=== PATIENT | female | born 1940 | race Caucasian/White ===

== ENCOUNTER 2017-01-06 12:27 | Inpatient (IN) | payer MEDICARE, BC ==
--- NOTE | ~2017-01-06 | CR72 ---
[facility] A Service of [facility] RADIOLOGY TEXT RESULTS PATIENT: BRIDGET COFFEY LOCATION: [facility] 562- : 41 UNIT #: [id number] AGE: [address]: Mirna Patel MD SEX: F ORDER DR: [id number] [facility] [address] [place], [place] [address] [id number] E MR#: [id number] Acc #: [id number] NAME: BRIDGET COFFEY : 1940 SEX: F STUDY DATE/TIME: 01/06/2017 14:24 UNIT: [facility] ROOM: STUDY DESCRIPTION: CR Chest Single View Portable Attending Physician: Dwayne Mike D.O. Ordering Physician: Dwayne Mike D.O. Primary Care Physician: Elias Beasley M.D. MEDICAL IMAGING REPORT This report is preliminary unless electronic signature is present EXAM Portable chest INDICATIONS Shortness of breath, cough and history for 10 days. COMPARISON STUDIES Compared with 03/14/2015 FINDINGS Calcified granuloma in the left lung. No acute infiltrate. Heart size stable. Tortuous aorta. IMPRESSION No active disease. Dictated by... Jose Hall M.D. THIS IS AN ELECTRONICALLY VERIFIED REPORT Jose Hall M.D. at 01/07/2017 10:06 AM ADALBERTO/fabienne TD: 01/06/2017 18:35 JOB #: [id number] MEDICAL IMAGING REPORT Page 1 of 1 COPY
--- NOTE | ~2017-01-06 | US77 ---
[facility] of [facility] RADIOLOGY TEXT RESULTS PATIENT: BRIDGET COFFEY LOCATION: [facility] 56- : 41 UNIT #: [id number] AGE: [address]: Mirna Patel MD SEX: F ORDER DR: [id number] [facility] [address] [place], [place] [address] [id number] I MR#: [id number] Acc #: [id number] NAME: BRIDGET COFFEY : 1940 SEX: F STUDY DATE/TIME: 01/06/2017 19:53 UNIT: [facility] ROOM: [facility] STUDY DESCRIPTION: US Kidney Bilateral Complete Attending Physician: Mirna Patel M.D. Ordering Physician: Eduardo Curran M.D. Primary Care Physician: Elias Beasley M.D. MEDICAL IMAGING REPORT This report is preliminary unless electronic signature is present EXAM Renal sonogram HISTORY Acute kidney injury, onset today. Creatinine 1.9. FINDINGS Real-time examination demonstrates the kidneys to be of normal size, shape and echogenicity. The right kidney measures 9.2 cm in length and the left kidney measures 8.6 cm in length. No hydronephrosis. No mass lesions. No perinephric fluid collections. Bladder not visualized. IMPRESSION Normal bilateral renal sonogram. Dictated by... Pamela Hall M.D. THIS IS AN ELECTRONICALLY VERIFIED REPORT Pamela Hall M.D. at 01/07/2017 3:10 PM Aldo TD: 01/07/2017 10:20 JOB #: [id number] MEDICAL IMAGING REPORT Page 1 of 1 COPY
--- NOTE | ~2017-01-06 | HP ---
Unit #: [id number] #: [id number] Patient: BRIDGET COFFEY [id number] [address] [place], [place] [address] [id number] E MR#: [id number] NAME: BRIDGET COFFEY ROOM: Age: 76 Sex: F Admission Date: 01/06/2017 : 1940 Attending Physician: Dwayne Mike D.O. Primary Care Physician: Elias Beasley M.D. HISTORY AND PHYSICAL CHIEF COMPLAINT Shortness of breath. HISTORY OF PRESENT ILLNESS The patient is a 76-year-old female with a history of bronchial asthma brought to the emergency room with worsening shortness of breath. The patient has been seeing the primary care physician for the last 10 days. The patient was on two rounds of IV and oral antibiotics and steroids. The patient finished the steroids two days ago. The patient complains of generalized weakness. The patient was found to have a lactic acid of 4.8 and potassium of 2.4. The chest x-ray is negative, and the urinalysis is not significant. The patient is being admitted for the above reasons. The patient is on multiple medications for diabetes including metformin. She denies any fever, chills, or nausea. The patient complains of a greenish productive cough for the last few days, and it is subsiding with the antibiotics and steroid prednisone. PAST MEDICAL HISTORY 1. Hypertension. 2. Seasonal allergies. 3. Bronchial asthma. 4. Type 2 diabetes. 5. Hypothyroidism. 6. Chronic back pain. 7. Chronic anxiety. 8. Gastroesophageal reflux disease. 9. Spastic bladder. PAST SURGICAL HISTORY 1. Bladder tie-up surgery. 2. Repair of rectocele. 3. Cataract surgery. 4. Cholecystectomy. 5. Hysterectomy. 6. Right knee replacement. 7. Lumbar spine surgery. HOME MEDICATIONS 1. Zanaflex. 2. Triamcinolone. 3. Maxzide. 4. Iron. 5. Promethazine. 6. Singulair. Unit #: [id number] #: [id number] Patient: BRIDGET COFFEY 7. Prilosec. 8. Ditropan. 9. K-Dur. 10. Saxagliptin/metformin. 11. Hydrocortisone. 12. Klor-Con. 13. Xyzal. 14. Synthroid. 15. Toprol-XL. 16. Advair. 17. Lasix. 18. Gabapentin. 19. Amaryl. 20. Hydrocodone and acetaminophen. 21. Diphenhydramine. 22. Colace. 23. Emollient. 24. Ferrous sulfate. 25. Flovent. 26. Norvasc. 27. Ammonium lactate. 28. Lipitor. 29. Clobetasol. 30. Farxiga. ALLERGIES Terramycin and penicillins. SOCIAL HISTORY No history of tobacco, alcohol, or any illicit drug abuse. FAMILY HISTORY Reviewed and none. REVIEW OF SYSTEMS A 14-point review of systems was performed and only pertinent positive findings are described above. The remaining are negative. PHYSICAL EXAMINATION GENERAL: Patient is lying in bed not in acute distress. VITAL SIGNS: Temperature 97.7, pulse 81, respiratory rate 16, blood pressure 96/61, and saturating 99% on room air. HEENT: Head atraumatic, normocephalic. Pupils equal, round, and reactive to light and accommodation. Extraocular movements are intact. NECK: Supple. LUNGS: Decreased air entry at the bases. No rhonchi, no wheezing. HEART: Regular rate and rhythm. ABDOMEN: Soft. Positive bowel sounds. EXTREMITIES: No cyanosis, no clubbing. Trace pedal edema. NEUROLOGIC: Alert, awake, and oriented. No gross focal motor deficit. DIAGNOSTIC STUDIES LABORATORY: Magnesium is 2.4. Troponin less than 0.05. WBC 26.7, hemoglobin 15.3, hematocrit 46.2, and platelets 212,000. Urinalysis shows trace leukocyte esterase and glucose 500. BNP 60. Sodium 132, potassium 2.4, chloride 89, bicarb 26, glucose 188, BUN 85, creatinine 1.9, AST 38, ALT 33, and albumin 4.3. Lactic acid 4.8. INR is 1. Troponin less than 0.05. Unit #: [id number] #: [id number] Patient: BRIDGET COFFEY ASSESSMENT 1. Lactic acidosis. 2. Probable sepsis. 3. Hypokalemia. 4. Acute kidney injury. 5. Weakness. PLAN Admit the patient to inpatient. Patient's lactic acidosis is probably due to metformin. Rule out infectious etiology. Patient will have a CT chest without contrast to rule out pneumonia. Patient will be on empiric IV antibiotics with Zithromax with history of penicillin allergy. Will have a Renal consult for the acute kidney injury and hypokalemia. Replace the potassium per protocol and hold metformin and Lasix. Patient will be on low-dose sliding scale and Accu-Cheks a.c. and at bedtime. Further recommendations will follow. Dictated by Oksana Molina TD: 01/06/2017 17:17 JOB #: [id number] HISTORY AND PHYSICAL Page 1 of 1 X PRASAD LUCIA MD X HISTORY AND PHYSICAL
--- NOTE | ~2017-01-06 | CO ---
Unit #: [id number] #: [id number] Patient: ALLISON CUMMINS [id number] [address] [place], [place] [address] [id number] I MR#: [id number] NAME: ALLISON CUMMINS ROOM: 562 Age: 76 Sex: F Admission Date: 01/06/2017 : 1940 Attending Physician: Mirna Patel M.D. Primary Care Physician: Elias Beasley M.D. Consultation Date: 01/07/2017 CONSULTATION REPORT REASON FOR CONSULTATION Renal insufficiency and hypokalemia. Thank you very much for asking me to see this patient in consultation. HISTORY OF PRESENT ILLNESS Ms. Allison Cummins is a 76-year-old female, who presented to the hospital here yesterday with severe weakness, who noted upon presentation to have an increased BUN and creatinine recorded at 85 and 1.9 last night. Because of this, I was asked to see the patient. She also had a potassium of 2.4. In reviewing her records in 2012, she had a creatinine in the 1 range, 04/04, it was 1.5, 06/04, it was 1.7, and it again noted upon presentation here, the patient states she has been feeling really sick and tired lately. She has had increased weakness. She has been to her primary doctor several times and was given two new medicines, but she could not tell me what they were, she thought one was diuretic added and may be an antibiotic, but again she was unable to tell me at this time and from looking in her list, it is unclear. She states she has had some intermittent shortness of breath, although she has that chronically with some asthma. She has been very tired, weak, just very difficult ambulating. She has not fallen recently, she has not had any swelling or any skin rashes. She used to be on Celebrex a few years ago, but she states she is not on Celebrex, Mobic, or any nonsteroidals now for her chronic pain. She says she has had bladder issues, but no burning when she urinates. Upon presentation, she also noted to have a lactic acid level of 4.8 with an increased white count of 26,700. She did receive one dose of Rocephin and azithromycin in the emergency room. I do not see any other antibiotics ordered at this point in time. She has blood cultures that were ordered as well. She is still just very tired and weak. Her potassium is being replaced and she was placed on IV fluids. This morning, she was noted to have a BUN and creatinine improved down to 70 and 1.3. PAST MEDICAL HISTORY History of bronchitis and asthma, history of hypertension, history of diabetes mellitus, history of hypothyroidism, history of chronic back pain, previous Celebrex use but none recently, history of anxiety, history of gastroesophageal reflux disease, history of spasmodic bladder, status post surgery in the past. She is status post cholecystectomy, status post hysterectomy, status post spine surgery, and status post knee surgery. ALLERGIES Include tetracycline and penicillin. Unit #: [id number] #: [id number] Patient: ALLISON CUMMINS SOCIAL HISTORY She does not smoke or drink. MEDICATIONS At home, include; Norvasc 5 mg a day. She is on Lipitor 10 mg a day and clobetasol cream. She is on Farxiga 5 mg a day. She is on Colace. She is on iron pill, several inhalers, Lasix 40 mg a day, gabapentin 400 mg four times a day, Amaryl 4 mg a day, hydrocodone, Tylenol p.r.n., hydrocortisone cream, and KCl 10 mEq four times a day. She is on Xyzal at bedtime, Synthroid 100 mcg a day, Toprol-XL 100 mg a day, Singulair 10 mg at night, Prilosec 20 mg a day, Ditropan XL 10 mg a day. She is on a combination of saxagliptin and metformin 11/999 tablet daily, Zanaflex 4 mg p.r.n., and Maxzide 75/50 daily. She is on Phenergan with codeine. REVIEW OF SYSTEMS As mentioned in the HPI. She denies any visual problems. No active sinus problems. No cough or hemoptysis. No neck pain or neck stiffness. No chest pain, chest heaviness, or palpitations. She has some chronic shortness of breath. No severe abdominal pain. No nausea, vomiting, or diarrhea. Currently, she denies any burning when she urinates. No swelling. No recent seizures or strokes. FAMILY HISTORY Negative for any kidney disease. PHYSICAL EXAMINATION GENERAL: She is alert and oriented, seems very tired. VITAL SIGNS: Temperature 98.0, pulse 79, and blood pressure 91 to 119 over 54 to 95. HEENT: She is normocephalic and atraumatic. Pupils are equal, round, and reactive to light. Her extraocular muscles are intact. Her mouth is clear and dry. No erythema or exudates. NECK: Supple. No JVD. CARDIAC: She appears to have a regular rate and rhythm without a rub. No S3 or S4. LUNGS: Clear bilaterally. No wheezes, rhonchi, or rales. ABDOMEN: Bowel sounds are positive. Nontender. Soft. No masses felt. No hepato-organomegaly noted. EXTREMITIES: She has no edema, clubbing, or cyanosis. NEUROLOGIC: Appears to be intact motor and sensory grossly. : Tripp catheter is in place. DIAGNOSTIC STUDIES LABORATORY RESULTS: Again upon admission, she had a BUN and creatinine of 85 and 1.9, lactic acid 4.8, potassium of 2.4, and sodium of 132. Today, she has a sodium of 136, potassium 2.5, but had actively been replaced, chloride is 90, bicarb is 27, BUN and creatinine of 70 and 1.3 respectively, glucose 69, and calcium 8.6. She had normal liver function tests. Albumin 4.3. Hemoglobin upon admission was 15.3, white count 26,700, and platelets 214,000. Her UA showed specific gravity of 1.013, no protein, 500 of glucose, 0 to 2 rbc's, although positive blood on dipstick, and 2 to 5 wbc's. Her urine sodium 65. Urine eosinophils pending. IMAGING STUDIES: Chest x-ray was negative. ASSESSMENT AND PLAN 1. Acute on possible chronic kidney disease, certainly creatinine over Unit #: [id number] #: [id number] Patient: ALLISON CUMMINS the last several years, it has been elevated to 1.5 to 1.7 range. She states she has never seen a kidney doctor that she knows of. Certainly, she does appear to have a component of volume depletion from multiple diuretics of Maxzide and Lasix. Her urine is fairly benign. In fact, she has no hematuria or proteinuria. She has a renal ultrasound that is pending. I do not know what her postvoid residual was when they put a Tripp catheter in, but she is making urine now and she has a history of some bladder issues. Also, because she had positive rbc's, but no blood and she is on Lipitor, I am going to go ahead and check CPK to rule out rhabdomyolysis. Also, I am going to check SPEP to rule out multiple myeloma. Continue IV fluids and hold her diuretics depending on how she does, depending on what further workup and treatment. 2. Lactic acidosis. I wonder if she has metformin-induced metabolic lactic acidosis secondary to her renal function, I am not sure over the last year, it could be less than 30 mL/minute and probably could have lactic acidosis from this. Certainly, metformin has been discontinued unless her renal function gets significantly better. I am not sure I would use this particular agent in the future. 3. Hypokalemia. The patient with severe decreased potassium and is probably drug induced from multiple diuretics, although she does have history of low potassium over the last few years in the chart. 4. History of hypertension. I am going to go ahead and do an aldosterone renin level to rule out hyperaldosteronism. I agree with aggressive potassium replacement and holding diuretics. 5. Diabetes mellitus. Again, hold metformin. 6. Hypertension. Again, agree with holding diuretics including Lasix and Maxzide for now. 7. Hyponatremia. Sodium of 132 upon admission. It is probably hypovolemic hyponatremia. Again, we will go ahead and check a cortisol level in a.m., check a TSH, hold her diuretics for now and we will follow. Dictated by.Laura Curran M.D. JOHAN/dom TD: 01/08/2017 03:33 JOB #: [id number] CONSULTATION REPORT Page 1 of 1 X Andrea Curran MD X CONSULTATION REPORT
--- NOTE | ~2017-01-06 | EKG ---
PATIENT: BRIDGET COFFEY UNIT #: [id number] Ventricular Rate: 76 BPM Atrial Rate: 76 BPM P-R Interval: 182 ms QRS Duration: 86 ms Q-T Interval: 432 ms QTC Calculation(Bezet): 486 ms P [place]: 37 degrees Calculated R [place]: -12 degrees Calculated T [place]: 57 degrees Diagnosis Line: Normal sinus rhythm Diagnosis Line: Left ventricular hypertrophy with repolarization Diagnosis Line: abnormality Diagnosis Line: Abnormal ECG Diagnosis Line: No previous ECGs available Diagnosis Line: Confirmed by AGUSTÍN ACE MD ([id number]) on Diagnosis Line: 01/06/2017 10:20:06 PM INTERPRETING MD: JOLENE
--- NOTE | ~2017-01-06 | CT57 ---
[facility] A Service of [facility] RADIOLOGY TEXT RESULTS PATIENT: BRIDGET COFFEY LOCATION: [facility] 562-01 : 41 UNIT #: [id number] AGE: [address]: Mirna Patel MD SEX: F ORDER DR: [id number] [facility] [address] [place], [place] [address] [id number] I MR#: [id number] #: [id number] NAME: BRIDGET COFFEY : 1940 SEX: F STUDY DATE/TIME: 01/06/2017 19:33 UNIT: [facility] ROOM: [facility] STUDY DESCRIPTION: CT Chest Wo Cont Attending Physician: Mirna Patel M.D. Ordering Physician: lAex Vazqeuz M.D. Primary Care Physician: Elias Beasley M.D. MEDICAL IMAGING REPORT This report is preliminary unless electronic signature is present EXAM CT chest without contrast. HISTORY 76-year-old female, shortness of air, productive cough x10 days, history of asthma, chronic bronchitis. COMPARISON CT chest 02/01/13. FINDINGS Axial images performed through the chest without contrast. This CT exam was performed with one or more of the following radiation dose reduction techniques: automatic exposure control, adjustment of mA and/or kV according to patient size, and iterative reconstruction. Multiplanar reconstructed images reviewed at a workstation. Examination demonstrates deformity of the thorax secondary to mild scoliosis. Pulmonary hyperinflation hyperlucency suggests mild emphysema. There is a densely calcified left upper lobe granuloma. No acute airspace disease. No effusions. Mild tracheobronchomegaly. Heart, aorta and pulmonary vessels unremarkable on this unenhanced study. No adenopathy. The upper abdomen unremarkable. Osseous structures and thoracic inlet unremarkable. IMPRESSION 1. Mild pulmonary hyperinflation could reflect underlying emphysema or related to reactive airway disease and emphysema. No acute airspace disease or consolidation. 2. Mild thoracolumbar scoliosis. Dictated by.Laura Hall M.D. [facility] A Service of [facility] RADIOLOGY TEXT RESULTS PATIENT: BRIDGET COFFEY LOCATION: [facility] 562-01 : [birth year] UNIT #: [id number] AGE: [address]: Mirna Patel MD SEX: F ORDER DR: THIS IS AN ELECTRONICALLY VERIFIED REPORT Pamela Hall M.D. at 01/07/2017 3:09 PM Nikia TD: 01/07/2017 10:00 JOB #: [id number] MEDICAL IMAGING REPORT Page 1 of 1 COPY
--- NOTE | ~2017-01-06 | DS ---
Unit #: [id number] #: [id number] Patient: BRIDGET COFFEY [id number] [address] [address] [id number] I MR#: [id number] NAME: BRIDGET COFFEY ROOM: 562 Age: 76 Sex: F Admission Date: 01/06/2017 : 1940 Discharge Date: 01/08/2017 Attending Physician: Mirna Patel M.D. Primary Care Physician: Elias Beasley M.D. DISCHARGE SUMMARY DISCHARGE DIAGNOSES 1. Acute kidney injury, prerenal, from volume depletion, Lasix and hydrochlorothiazide. 2. Lactic acidosis from acute kidney injury and metformin. 3. Hypertension, lower side. 4. Diabetes mellitus type 2, uncontrolled. 5. Hypokalemia. 6. Hypophosphatemia. 7. No sepsis with no infection. 8. Hyponatremia, likely from hydrochlorothiazide and hypovolemic hyponatremia. 9. Seasonal allergies. 10. Bronchial asthma. 11. Hypothyroidism with low TSH: Synthroid has been cut down. 12. Chronic back pain. 13. Chronic anxiety. 14. Gastroesophageal reflux disease. 15. Spastic bladder. CONSULTATION Dr. Curran. PROCEDURE None. LAB DATA Glucose 185, cortisol 13, sodium 137, potassium 3.0, creatinine 0.9, phosphorus 1.7, magnesium 2.2, lactic acid 1.1, WBC 12.7, hemoglobin 12.5, platelets 122. ALLERGIES Penicillin, oxytetracycline. DISCHARGE MEDICATIONS 1. Advair 100/50, one puff inhalation b.i.d. 2. Triamcinolone acetonide 0.1% cream, apply topically b.i.d. 3. Flovent two puffs inhalation daily. 4. Hydrocortisone solution, apply topically daily. 5. Clobetasol 0.05% cream, apply topically as needed. 6. Neurontin 400 p.o. b.i.d. 7. Diphenhydramine 25 at bedtime p.r.n. sleep. 8. Toprol XL 25 daily. 9. Colace 100 daily. 10. Milk of magnesia 30 mL p.o. daily. Unit #: [id number] #: [id number] Patient: BRIDGET COFFYE 11. Ditropan XL 10 mg p.o. daily. 12. Lipitor 10 mg daily. 13. Ferrous sulfate 325 p.o. daily. 14. Singulair 10 daily. 15. Lortab 10 mg p.o. b.i.d. p.r.n. pain. 16. Emollient, apply topically daily. 17. Prilosec 20 daily. 18. Potassium 40 mEq daily. 19. Cetirizine 5 mg p.o. daily. 20. Zanaflex 4 mg p.o. b.i.d. p.r.n. muscle spasm. 21. Amaryl 4 mg before breakfast. 22. Synthroid 75 mcg p.o. daily. 23. Neutra-Phos, one packet p.o. b.i.d. for three more days. HOSPITALIZATION COURSE 76-year-old admitted because of shortness of breath. Acute kidney injury from prerenal volume depletion: The patient received IV fluids. Also, she is on hydrochlorothiazide and Lasix which has been discontinued. Currently, creatinine is stable. Lactic acidosis from acute kidney injury and metformin which has been discontinued: The patient received IV fluids. Lactic acid is normal now. No signs of infection, no signs of sepsis. Hypokalemia, replace with p.o. potassium and IV potassium. Currently, potassium is low. I am going to give her prescription for potassium 40 mEq and patient to have a BMP in one week time and follow with family physician with results. Hypophosphatemia: Patient will receive Neutra-Phos here and I gave prescription for Neutra-Phos to take home. Shortness of breath, likely from lactic acidosis, resolved. Diabetes mellitus type 2: Controlled. Continue with Amaryl only. DC metformin because of severe lactic acidosis recently. Generalized weakness: Patient was seen by physical therapy. They recommend home health. Discussed with the daughter. According to her, she takes five tablets of KCl 10 mEq daily at home. I am going to give 40 mEq daily prescription so she doesn't need to take multiple tablets. Discussed with daughter. Agree to be discharged home. Discharge time taken is 32 minutes. ADDITIONAL JOB #: [id number] Dictated by... Oksana Pisano/lorelei Unit #: [id number] #: [id number] Patient: BRIDGET COFFEY TD: 01/09/2017 06:48 JOB #: [id number] DISCHARGE SUMMARY Page 1 of 1 X Mirna Patel MD X DISCHARGE SUMMARY
[~2017-01-06 12:27] MED LIST: ADVAIR 100-501 EAC1 IH; ADVAIR 1001 DISK W/D PO; ALBUTEROL2.5 MG/0.5 IH; ALPRAZOLAM0.5 MG PO; AMARYL PO; AMMONIUM LACTA385 GM TOP; ASPIRIN PO; BAYER CHEWABLE81 MG PO; CELEBREX PO; CIPRO PO; CLOBETASOL PROP15 GM TOP; COMBIVENT U/D3 M2 INH; DESOWEN60 GM TOP; DIFLUCAN PO; DITROPAN XL PO; DYAZIDE 37.5/251 CAP PO; FLONASE16 GM; GLUCOTROL10 MG PO; GUAIFENESIN600 MG PO; HYDROCODON-ACE1 EAC4 PO; KCL PO; KOMBIGLYZE XR1 EAC1 PO; LEVAQUIN750 MG PO; LEVOCETIRIZINE D5 MG PO; LIPITOR PO; LORTAB 10/500 T1 TAB PO; MAXZIDE 37.5 M1 EACH PO; METOPROLOL SUC100 MG PO; MICRO-K10 MEQ PO; NASACORT AQ16.5 GM; NIZORAL 2% CREA15 GM EXT; NORVASC PO; NORVASC10 MG PO; OMEPRAZOLE20 M2 PO; PRAMOSONE 2.528.4 GM TOP; PREDNISONE PO; PREMARIN PO; PREMARIN0.625 MG PO; PRILOSEC PO; SALICYLIC ACID; SINGULAIR PO; SYNTHROID PO; TACLONEX; TERBINAFINE (L250 M1 PO; TOPROL XL PO; TRIAMTERENE-HC1 EAC1 PO; XANAX0.5 MG PO; ZANAFLEX PO; [UNRECOGNIZED DRUG - OTHER]
[2017-01-06] MEDS ORDERED: NORVASC PO (13:58)
[2017-01-06] MEDS ORDERED: AMMONIUM LACTA385 G1 TOP (13:59)
[2017-01-06] MEDS ORDERED: LIPITOR PO (13:59)
[2017-01-06] MEDS ORDERED: FARXIGA5 MG PO (14:00)
[2017-01-06] MEDS ORDERED: CLOBETASOL E 0.60 GM TOP (14:00)
[2017-01-06] MEDS ORDERED: EZ NITE SLEEP25 MG PO (14:01)
[2017-01-06] MEDS ORDERED: DOCUSATE SODIU100 MG PO (14:01)
[2017-01-06] MEDS ORDERED: FERRO-TIME325 MG PO (14:02)
[2017-01-06] MEDS ORDERED: [UNRECOGNIZED DRUG - OTHER] TOP (14:02)
[2017-01-06] MEDS ORDERED: FLOVENT HFA10.6 GM INH (14:03)
[2017-01-06] MEDS ORDERED: ADVAIR 100-501 EAC1 INH (14:03)
[2017-01-06] MEDS ORDERED: LASIX PO (14:03)
[2017-01-06] MEDS ORDERED: AMARYL PO (14:04)
[2017-01-06] MEDS ORDERED: GABAPENTIN400 M2 PO (14:04)
[2017-01-06] MEDS ORDERED: HYDROCODON-ACE1 EAC5 PO (14:04)
[2017-01-06] MEDS ORDERED: KCL PO (14:07)
[2017-01-06] MEDS ORDERED: TEXACORT TOP (14:07)
[2017-01-06] MEDS ORDERED: XYZAL5 MG PO (14:07)
[2017-01-06] MEDS ORDERED: TOPROL XL100 MG PO (14:08)
[2017-01-06] MEDS ORDERED: SYNTHROID PO (14:08)
[2017-01-06] MEDS ORDERED: SINGULAIR PO (14:09)
[2017-01-06] MEDS ORDERED: K-DUR10 MEQ PO (14:09)
[2017-01-06] MEDS ORDERED: DITROPAN XL10 MG PO (14:09)
[2017-01-06] MEDS ORDERED: PRILOSEC PO (14:09)
[2017-01-06] MEDS ORDERED: TRIAMCINOLONE AC1 GM TOP (14:10)
[2017-01-06] MEDS ORDERED: ZANAFLEX4 M1 PO (14:10)
[2017-01-06] MEDS ORDERED: KOMBIGLYZE XR1 EAC1 PO (14:10)
[2017-01-06] MEDS ORDERED: MAXZIDE 75-501 EACH PO (14:11)
[2017-01-06] MEDS ORDERED: LEVAQUIN PO (14:12)
[2017-01-06] MEDS ORDERED: IRON45 MG PO (14:12)
[2017-01-06] MEDS ORDERED: PROMETHAZINE V118 M1 PO (14:14)
[2017-01-06] MEDS ORDERED: PATIENT'S PHARMACY (14:15)
[2017-01-06 14:26] LABS: BASOPHIL% 0.1 % (0-2.5); EOSINOPHIL% 0.1 % (0.0-7.0); HEMATOCRIT 46.2 % (35.0-45.0); HEMOGLOBIN 15.3 gm/dL (12.0-16.0); LYMPHOCYTE# 3.9 X10e3 (1.0-3.5); LYMPHOCYTE% 14.7 % (17.0-45.0); MEAN CELL VOLUME 95.6 FL (83-96); MEAN CORPUSCULAR HEMOGLOBIN 31.7 PG (28-34); MEAN CORPUSCULAR HGB CONC 33.2 g/dL (30-36); MEAN PLATELET VOLUME 7.3 FL (6.5-11.5); MONOCYTE# 1.9 X10e3 (0-1.0); NEUTROPHIL# 20.9 X10e3 (1.5-7.1); NEUTROPHIL% 78.1 % (40-75); PLATELET COUNT 212 X10e3 (140-420); RED BLOOD COUNT 4.84 X10e (3.90-5.30); RED CELL DISTRIBUTION WIDTH 14.6 % (11.0-15.5); WHITE BLOOD COUNT 26.7 X10e3 (4.0-10.5)
[2017-01-06 14:28] LABS: DIFF IND YES
[2017-01-06 14:32] LABS: POC - CKMB 1.8 ng/mL (0.0-7.9); POC - TROPONIN <0.05 ng/mL (<=0.05)
[2017-01-06 14:42] LABS: PARTIAL THROMBOPLASTIN TIME 23.1 SECONDS (23.5-31.3); PROTHROMBIN TIME (PATIENT) 11.1 SECONDS (10.0-11.7)
[2017-01-06 15:07] LABS: URINE SOURCE CLEAN CATCH
[2017-01-06 15:07] LABS: ALBUMIN SERUM 4.3 g/dL (3.5-5.0); BILIRUBIN, DIRECT 0.2 mg/dL (0.0-0.2); BILIRUBIN,INDIRECT 0.7 mg/dL (0.0-0.9); BILIRUBIN,TOTAL 0.9 mg/dL (0.2-2.0); BUN/CREATININE RATIO 44.73; CALCIUM SERUM 9.6 mg/dL (8.4-10.2); CREATININE SERUM 1.9 mg/dL (0.6-1.4); GLOM FILT RATE Estimated 25.3 mL/min (>60); PROTEIN TOTAL SERUM 7.5 g/dL (6.0-8.3)
[2017-01-06 15:09] LABS: POTASSIUM 2.4 mmol/L (3.5-5.1)
[2017-01-06 15:14] LABS: URINE APPEARANCE CLEAR; URINE BILIRUBIN NEG (NEG); URINE BLOOD 1+ (NEG); URINE COLOR YELLOW; URINE GLUCOSE 500 MG/DL (NEG); URINE KETONE NEG (NEG); URINE LEUKOCYTE ESTERASE TRACE (NEG); URINE NITRATE NEG (NEG); URINE PH 6.5 (5-8); URINE PROTEIN NEG (NEG); URINE SPECIFIC GRAVITY 1.013 (1.003-1.035); URINE UROBILINOGEN 0.2 MG/DL (NEG)
[2017-01-06 15:16] LABS: URBCS1 AUWI 0-2 /[HPF] (0-2); URINE BACTERIA AUWI NEG (NEGATIVE); URINE SQUAMOUS EPITHELIAL CELL NONE SEEN /[HPF]
[2017-01-06 15:20] LABS: CULTURE INDICATED? NO
[2017-01-06 15:37] LABS: ANISOCYTOSIS SL; PLATELET ESTIMATE NORMAL (NORMAL)
[2017-01-06 15:50] LABS: POC - CKMB 2.3 ng/mL (0.0-7.9); POC - TROPONIN <0.05 ng/mL (<=0.05)
[2017-01-07 04:01] LABS: BUN/CREATININE RATIO 53.84; CALCIUM SERUM 8.6 mg/dL (8.4-10.2); CREATININE SERUM 1.3 mg/dL (0.6-1.4); GLOM FILT RATE Estimated 40.1 mL/min (>60)
[2017-01-07 04:03] LABS: POTASSIUM 2.5 mmol/L (3.5-5.1)
[2017-01-07 10:48] LABS: CALCIUM SERUM 8.7 mg/dL (8.4-10.2); CREATININE SERUM 1.1 mg/dL (0.6-1.4); GLOM FILT RATE Estimated 49.1 mL/min (>60); POTASSIUM 3.3 mmol/L (3.5-5.1)
[2017-01-08 07:37] LABS: HEMATOCRIT 38.4 % (35.0-45.0); MEAN CELL VOLUME 97.1 FL (83-96); MEAN CORPUSCULAR HEMOGLOBIN 31.7 PG (28-34); MEAN CORPUSCULAR HGB CONC 32.7 g/dL (30-36); MEAN PLATELET VOLUME 7.1 FL (6.5-11.5); RED BLOOD COUNT 3.95 X10e (3.90-5.30); RED CELL DISTRIBUTION WIDTH 15.1 % (11.0-15.5)
[2017-01-08 07:42] LABS: HEMOGLOBIN 12.5 gm/dL (12.0-16.0)
[2017-01-08 07:43] LABS: WHITE BLOOD COUNT 12.7 X10e3 (4.0-10.5)
[2017-01-08 08:03] LABS: ALBUMIN SERUM 3.3 g/dL (3.5-5.0); BILIRUBIN,TOTAL 0.5 mg/dL (0.2-2.0); BUN/CREATININE RATIO 34.44; CALCIUM SERUM 8.1 mg/dL (8.4-10.2); CREATININE SERUM 0.9 mg/dL (0.6-1.4); GLOM FILT RATE Estimated 62.6 mL/min (>60); MAGNESIUM 2.2 mg/dL (1.6-3.0); PHOSPHOROUS 1.7 mg/dL (2.5-4.6); PROTEIN TOTAL SERUM 5.6 g/dL (6.0-8.3)
[2017-01-08] MEDS ORDERED: MILK OF MAGNESIA PO ×2 (16:33→18:24)
[2017-01-08] MEDS ORDERED: PHOS NAK PO (16:51)
[2017-01-08] MEDS ORDERED: ATORVASTATIN CA10 MG PO (18:25)
[2017-01-09 09:59] LABS: ALDOSTERONE SERUM 26 ng/dL (***)
== END 2017-01-08 18:54 | disposition home health service (06) | DRG 683 ==
LOC: CED 12:27 → C5B 16:30 → CEDOF 16:30 → CED 20:19 → C5B 21:08 → CEDOF 21:08 → C5B 01-07 06:40
PROVIDERS: Emergency Medicine; Internal Medicine; Internal Medicine Nephrology
DX: N17.9 Acute kidney failure, unspecified (principal); E87.2 Acidosis; E11.22 Type 2 diabetes mellitus with diabetic chronic kidney disease; E11.65 Type 2 diabetes mellitus with hyperglycemia; E87.1 Hypo-osmolality and hyponatremia; J45.909 Unspecified asthma, uncomplicated; Z79.84 Long term (current) use of oral hypoglycemic drugs; E03.9 Hypothyroidism, unspecified; F41.9 Anxiety disorder, unspecified; K21.9 Gastro-esophageal reflux disease without esophagitis; N32.89 Other specified disorders of bladder; Z98.49 Cataract extraction status, unspecified eye; Z90.710 Acquired absence of both cervix and uterus; Z90.49 Acquired absence of other specified parts of digestive tract; Z96.651 Presence of right artificial knee joint; Z88.0 Allergy status to penicillin; E87.6 Hypokalemia; T38.3X5A Adverse effect of insulin and oral hypoglycemic [antidiabetic] drugs, initial encounter; E86.9 Volume depletion, unspecified; I12.9 Hypertensive chronic kidney disease with stage 1 through stage 4 chronic kidney disease, or unspecified chronic kidney disease; N18.3 Chronic kidney disease, stage 3 (moderate); E83.39 Other disorders of phosphorus metabolism; M54.9 Dorsalgia, unspecified; G89.29 Other chronic pain
CPT/HCPCS: 36415; 71010; 71250; 76770; 80048; 80053; 80076; 81003; 82088; 82533; 82550; 82553; 82947; 83605; 83735; 83880; 84100; 84132; 84244; 84300; 84443; 84484; 85025; 85027; 85610; 85730; 86334; 87040; 89190; 93005; 94760; 96365; 97110; 97116; 97161; 97166; 97530; 97535; 99285; G8978-GP; G8979-GP; G8987-GO; G8988-GO; J0456; J0696; J1650; J1815